=== PATIENT | female | born 1995 | race African-American/Black ===

== ENCOUNTER 2017-01-20 18:34 | Emergency (ER) | payer OTHER ==
[~2017-01-20] VITALS: Ht 165.1 cm; Wt 145.2 kg
[~2017-01-20 18:34] MED LIST: IBUPROFEN600 M1 PO
--- NOTE | 2017-01-20 19:18 | ED GI/GU/ABDOMINAL COMPLAINT ---
History of Present Illness General Chief Complaint: General Adult Stated Complaint: URIARTE, ABD PAIN, X 2 DAYS Source: patient, family Exam Limitations: no limitations Vital Signs & Intake/Output Vital Signs & Intake/Output Vital Signs Date Time Temp Pulse Resp B/P B/P Pulse O2 O2 Flow FiO2 Mean Ox Delivery Rate 01/21 2040 97.2 78 18 144/90 98 Room Air 01/20 1836 97.2 94 15 167/90 96 Room Air Room Air Allergies Coded Allergies: No Known Allergies (01/20/17) Reconcile Medications Acetaminophen (Tylenol Extra Strength) 500 MG TABLET 1 TAB PO TID pain Omeprazole 20 MG CAPSULE. 1 CAP PO DAILY abdominal pain Triage Note: PT TO ED FOR ABD PAIN THAT STARTED SATURDAY AFTER "HAVING A COUPLE OF DRINKS." PT REPORTS +N, NO VOMITING. DENIES URINARY ISSUES. LAST BM THIS MORNING WITHOUT BLOOD IN STOOL. Triage Nurses Notes Reviewed? yes LMP (ages 10-50): date (2 weeks) ? n Is pt currently ? No Onset: Abrupt Duration: day(s): (2) Timing: single episode today Quality/Severity: cramping, dullness Severity Numbers: 4 Location: epigastric, left upper quadrant, suprapubic Radiation: no radiation Activities at Onset: drinking ETOH Prior Abdominal Problems: none Past Sexual History: Unobtainable at this time Sexually Active: Yes Last Time You Were Sexual: less than 2 months ago Sexual Orientation: Other No Modifying Factors: none Modifying Factors: Worsens With: lying down. Associated Symptoms: abdominal pain HPI: 21-year-old female with no past medical history presents complaining of headache and abdominal pain for the past 2 days. Patient reports abdominal pain started Saturday after she had been drinking heavily. Pain is located in the epigastric and left upper quadrant areas and does not radiate. Patient reports pain is worse with laying down and she rates it currently as a 4 out of 10. She has not taken any medication for the pain. Patient reports that abdominal pain is also associated with headache and mild nausea but no vomiting. Headache is described as pressure located on both sides of the head and does not radiate. Patient denies any urinary symptoms vaginal discharge or diarrhea fever shortness of breath or chest pain. (JOS LEE PA-C) Past History Travel History Traveled to [place] past 21 day No Medical History Any Pertinent Medical History? 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 No (ROSA BEJARANO-Asuncion,JOS) Review of Systems Review of Systems Constitutional: Reports: no symptoms. EENTM: Reports: no symptoms. Respiratory: Reports: no symptoms. Cardiovascular: Reports: no symptoms. GI: Reports: abdominal pain. Genitourinary: Reports: no symptoms. Musculoskeletal: Reports: no symptoms. Skin: Reports: no symptoms. Neurological/Psychological: Reports: headache. Hematologic/Endocrine: Reports: no symptoms. Immunologic/Allergic: Reports: no symptoms. All Other Systems: Reviewed and Negative (ROSA DELACRUZ,JOS) Physical Exam Physical Exam General Appearance: well developed/nourished, no apparent distress, alert, awake Head: atraumatic, normal appearance Eyes: Bilateral: normal appearance, PERRL, EOMI, normal inspection. Ears, Nose, Throat, Mouth: hearing grossly normal, moist mucous membrane, Tympanic normal Neck: normal inspection, supple, full range of motion, normal alignment Respiratory: normal breath sounds, chest non-tender, no respiratory distress, lungs clear Cardiovascular: regular rate/rhythm Peripheral Pulses: 2+ radial (R), 2+ radial (L) Gastrointestinal: normal bowel sounds, soft, tenderness (epigastric, LUQ, suprapubic) Rectal: deferred Back: normal inspection, normal range of motion, no vertebral tenderness Extremities: normal range of motion Neurologic/Psych: no motor/sensory deficits, awake, alert, oriented x 3, normal gait, normal mood/affect Skin: intact, normal color, warm/dry Comments: Epigastric, suprapubic and left upper quadrant areas are mildly tender to palpation. There is no guarding no rebound tenderness. Abdomen is soft and nondistended. Patient appears well on exam Core Measures ACS in differential dx? No Severe Sepsis Present: No Septic Shock Present: No (ROSA DELACRUZ,JOS) Progress Differential Diagnosis: appendicitis, biliary colic, cholecystitis, diverticulitis, gastritis, hepatitis, inflamm bowel dis, peptic ulcer, PUD/GERD, SBO, UTI/pyelo Plan of Care: Orders Procedure Date/time Status Add-on Test (ER Only) 01/21 2004 Active LIPASE 01/20 1931 Complete C-REACTIVE PROTEIN 01/20 1931 Complete COMPREHENSIVE METABOLIC PANEL 01/20 1931 Complete CBC WITHOUT DIFFERENTIAL 01/20 1931 Complete AMYLASE 01/20 1931 Complete CULTURE,URINE 01/21 1908 Active URINE 01/20 1838 Complete URINALYSIS 01/20 1838 Complete Laboratory Tests 01/20/171939: Anion Gap 9, Estimated GFR > 60, BUN/Creatinine Ratio 22.9, Glucose 83, Calcium 9.1, Total Bilirubin 0.4, AST 17, ALT 26, Alkaline Phosphatase 66, C-Reactive Prot, Quant 1.2 H, Total Protein 7.3, Albumin 3.9, Globulin 3.4, Albumin/ Globulin Ratio 1.1, Amylase 57, Lipase 69, CBC w Diff NO MAN DIFF REQ, RBC 4.85, MCV 87.3, MCH 28.4, RDW 12.9, MPV 8.3, Gran % 64.7, Lymphocytes % 26.7, Monocytes % 6.6, Eosinophils % 1.6, Basophils % 0.4, Absolute Granulocytes 6.5, Absolute Lymphocytes 2.7, Absolute Monocytes 0.7 H, Absolute Eosinophils 0.2, Absolute Basophils 0, PUBS MCHC 32.5 L 01/20/171907: Urinalysis LIGHT H, Urine Color YEL, Urine Clarity HAZY H, Urine pH 7.0, Ur Specific [place] 1.020, Urine Protein NEG, Urine Ketones NEG, Urine Nitrite NEG, Urine Bilirubin NEG, Urine Urobilinogen 0.2, Ur Leukocyte Esterase MOD H, Ur Microscopic SEDIMENT EXAMINED, Urine RBC RARE, Urine WBC 3-5 H, Ur Epithelial Cells FEW, Urine Bacteria RARE H, Urine Hemoglobin NEG, Urine Glucose NEG, Urine Test NEGATIVE Microbiology 01/21 2004 URINE ROUT: Urine Culture - CAN Cancelled: DUPLICATE - UC ADDED AT 2017 TO URINE REC'D AT 190 - SEE 01/21 1908 URINE ROUT: Urine Culture - RECD 01/20/2017 8:29 PM .patient reevaluated after 1 L normal saline and Protonix and IV Tylenol given. Patient reports improvement of abdominal pain and is currently pain-free in her abdomen. History of physical or compatible with alcoholic gastritis. Imaging is not warranted at this time as the abdomen is currently nontender and nondistended. She still reports a mild headache 4 out of 10. Overall she feels better. Blood work is within normal limits. Urinalysis shows some signs of infection with white blood cells and leukocyte esterase. We will send off a culture to ensure that there is no signs of urinary tract infection. No antibiotics for now as patient is not having any urinary symptoms. Blood pressure is mildly elevated to the 160s over 90s. Repeat blood pressure is improved after rest at 140/90. Patient reports previous history of this but is not currently being treated for hypertension. She will be discharged home on by mouth omeprazole and Tylenol as needed and she'll follow- up with her primary care doctor this week. Case was discussed with Dr. Chawla who is in agreement with the plan. (ROSA DELACRUZ,JOS) Initial ED EKG: none (ROSA DELACRUZ,JOS) Departure Departure Disposition: HOME OR SELF CARE Condition: Stable Clinical Impression Primary Impression: Epigastric abdominal pain Secondary Impressions: Headache Referrals: PATIENT HAS NO PRIMARY CARE DR (PCP/Family) Additional Instructions: Rest, drink plently of fluids do not drink any alcohol. Mcpherson foods like bananas or applesauce and toast. Take omeprazole and Tylenol as directed. They can follow-up on it with her primary care doctor to reassess her blood pressure. Return to the emergency department with any concerns. Please go over all results of today's visit with your primary care doctor. Contact your primary care doctor to let them know you were here in the emergency room. There may be nonspecific findings which may not be related to your visit today here in the emergency room but may require further evaluation and chronic monitoring by your primary care doctor. If you had a laceration today the chance of foreign body always remains. You should follow-up with your primary care doctor for recheck in 3-5 days for a wound check. If you had an x-ray done there is a chance that a fracture could have been missed on initial read and you should follow-up with your primary care doctor for repeat x-rays if symptoms persist. If your blood pressure was elevated here in the emergency room please have rechecked by her primary care doctor within the next 48 hours by your primary care doctor. If you were prescribed a narcotic here in the emergency room or any type of controlled substances you're not allowed to drive while taking this medication or operate any type of heavy machinery. Narcotics can make you feel lightheaded dizziness nausea and can cause constipation. You may need to cotton picker operator a stool softener. Thank you for choosing [facility] emergency room. Please return to the emergency room immediately if you have any other concerns worsening of symptoms. Departure Forms: Customer Survey General Discharge Information Prescriptions: Current Visit Scripts Omeprazole 1 CAP PO DAILY #30 CAP Acetaminophen (Tylenol Extra Strength) 1 TAB PO TID #10 TAB (JOS LEE PA-C) PA/BILLBOARD INSTALLER Co-Sign Statement Statement: ED Attending supervision documentation- [] I saw and evaluated the patient. I have also reviewed all the pertinent lab results and diagnostic results. I agree with the findings and the plan of care as documented in the PA's/BILLBOARD INSTALLER's documentation. [x] I have reviewed the ED Record and agree with the PA's/BILLBOARD INSTALLER's documentation. [] Additions or exceptions (if any) to the PAs/BILLBOARD INSTALLER's note and plan are summarized below: [] (KRISHNA AYALA,RISSA Juan)
[2017-01-20 20:11] LABS: ABSOLUTE BASOPHIL COUNT 0 /CUMM (0.0-0.2); ABSOLUTE EOSINOPHIL COUNT 0.2 /CUMM (0.0-0.7); ABSOLUTE GRANULOCYTE CT 6.5 /CUMM (1.4-6.5); ABSOLUTE LYMPH COUNT 2.7 /CUMM (1.2-3.4); ABSOLUTE MONOCYTE COUNT 0.7 /CUMM (0.10-0.60); BASOPHIL % 0.4 % (0.0-2.0); EOSINOPHIL % 1.6 % (0-5); GRANULOCYTE % 64.7 % (42.2-75.2); HEMATOCRIT 42.3 % (37-47); MEAN CORPUSCULAR HGB 28.4 PG (27.0-31.0); MEAN CORPUSCULAR HGB CONC 32.5 G/DL (33.0-37.0); MEAN CORPUSCULAR VOLUME 87.3 FL (81.0-99.0); MEAN PLATELET VOLUME 8.3 FL (7.4-10.4); PLATELET COUNT 291 /CUMM (130-400); RBC DISTRIBUTION WIDTH 12.9 % (11.5-14.5); RED BLOOD CELL CT 4.85 /CUMM (4.20-5.40); WHITE BLOOD CELL COUNT 10.1 /CUMM (4.8-10.8)
[2017-01-20 20:40] VITALS: BP 144/90
[2017-01-20] MEDS ORDERED: TYLENOL EXTRA500 M2 PO (20:58)
[2017-01-20] MEDS ORDERED: OMEPRAZOLE20 M2 PO (20:58)
== END 2017-01-20 21:02 ==
LOC: ERH 18:34
PROVIDERS: Physician Assistant Medical
DX: R10.13 Epigastric pain (principal); R51 Headache
CPT/HCPCS: 81001; 81025; 87086; 96374; 96375; J0131

== ENCOUNTER 2017-11-20 19:00 | Emergency (ER) | payer OTHER ==
[~2017-11-20] VITALS: Ht 162.6 cm; Wt 145.2 kg
[~2017-11-20 19:00] MED LIST changes: +OMEPRAZOLE20 M2 PO; +TYLENOL EXTRA500 M2 PO
[2017-11-20 19:23] VITALS: BP 125/89
--- NOTE | 2017-11-20 19:23 | ED GENERAL ADULT ---
History of Present Illness General Chief Complaint: General Adult Stated Complaint: PREG TEST Source: patient Exam Limitations: no limitations Vital Signs & Intake/Output Vital Signs & Intake/Output Vital Signs Date Time Temp Pulse Resp B/P B/P Pulse O2 O2 Flow FiO2 Mean Ox Delivery Rate 11/20 1922 98.9 87 18 125/89 98 Room Air Allergies Coded Allergies: No Known Allergies (01/20/17) Reconcile Medications Ibuprofen 600 MG TABLET 1 TAB PO BID PRN PAIN with food Triage Nurses Notes Reviewed? yes Onset: Gradual Duration: week(s): (2) Timing: no prior history Injury Environment: home Severity: mild Severity Numbers: 1 No Modifying Factors: none HPI: Patient is a 22-year-old female presenting to the emergency department with chief complaint of intermittent nausea that she experienced 2 weeks ago. Currently not nauseous. No abdominal pain. She thinks she may be as she has had unprotected sex. Denies any vaginal bleeding or discharge. No urinary frequency urgency or dysuria. Here for a test. Has not gone to see her CASH CLERK. (Marisol Oglesby) Past History Travel History Traveled to [place] past 21 day No Medical History Any Pertinent Medical History? 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 No (Marisol Oglesby) Review of Systems Review of Systems Constitutional: Reports: no symptoms. Comments Review of systems: See HPI, All other systems negative. Constitutional, no chills fever or weight loss HEENT: No visual changes no sore throat no congestion Cardiovascular: No chest pain ,palpitation , orthopnea or ankle swelling Skin, no jaundice no rashes Respiratory: No dyspnea cough sputum or hemoptysis GI: no vomiting : No dysuria No hematuria Muscle skeletal: no back pain, no neck pain, Neurologic: No numbness no confusion Psych: No stress anxiety or depression,. Heme/endocrine: No bruising no bleeding no polyuria or polydipsia Immunology: No splenectomy or history of AIDS (Marisol Oglesby) Physical Exam Physical Exam General Appearance: well developed/nourished, no apparent distress, alert, awake , comfortable Comments: Well-developed well-nourished person in no acute distress HEENT: atraumatic, normocephalic Neck: NORMAL INSPECTION Back: Nontender, no CVA tenderness. Cardiovascular: Regular rate and rhythms no murmurs rubs or gallops, normal JVP Respiratory: No respiratory distress.breath sounds clear to auscultation bilaterally Abdomen: Soft, nontender nondistended Extremity: No edema Neuro: Alert oriented x3 Skin: No appreciable rash on exposed skin, skin is warm and dry. Psych: Mood and affect is normal, memory and judgment is normal. Core Measures ACS in differential dx? No CVA/TIA Diagnosis: No Sepsis Present: No Sepsis Focused Exam Completed? No (Marisol Oglesby) Progress Differential Diagnoses I considered the following diagnoses in my evaluation of the patient: , dysmenorrhea, amenorrhea Plan of Care: Orders Procedure Date/time Status URINE 11/20 1902 Complete Laboratory Tests 11/20/171958: Urine Test NEGATIVE Initial ED EKG: none (Marisol Oglesby) Departure Departure Time of Disposition: 2026 Disposition: HOME OR SELF CARE Condition: Stable Clinical Impression Primary Impression: Nausea Secondary Impressions: Amenorrhea Referrals: Herber AYALA,Herber (PCP/Family) Fernanda Arellano MD Additional Instructions: Follow-up with your CASH CLERK in the next 5-7 days. Call to make an appointment. It may be too early to detect with urinalysis. Try testing again in the next 1-2 weeks just after missing a period. Increase fluids. Return for worsening symptoms or concerns. Departure Forms: Customer Survey General Discharge Information (Marisol Oglesby) PA/ELECTRONICS DEPARTMENT MANAGER Co-Sign Statement Statement: ED Attending supervision documentation- I saw and evaluated the patient. I have also reviewed all the pertinent lab results and diagnostic results. I agree with the findings and the plan of care as documented in the PA's/ELECTRONICS DEPARTMENT MANAGER's documentation. x I have reviewed the ED Record and agree with the PA's/ELECTRONICS DEPARTMENT MANAGER's documentation. [] Additions or exceptions (if any) to the PAs/ELECTRONICS DEPARTMENT MANAGER's note and plan are summarized below: [] (Jd AYALA,Leroy) Critical Care Note Critical Care Note Critical Care Time: non-applicable (Michelle BEJARANO,Marisol)
== END 2017-11-20 20:37 ==
LOC: ERH 19:00
DX: R11.0 Nausea (principal); N91.2 Amenorrhea, unspecified
CPT/HCPCS: 81025

== ENCOUNTER 2017-12-25 02:25 | Emergency (ER) | payer OTHER ==
[~2017-12-25] VITALS: Ht 162.6 cm; Wt 156.9 kg
--- NOTE | 2017-12-25 03:22 | ED GI/GU/ABDOMINAL COMPLAINT ---
History of Present Illness General Chief Complaint: General Adult Stated Complaint: "ABD PAIN RADIATES TO LOWER BACK,+N+V+D" Source: patient Exam Limitations: no limitations Vital Signs & Intake/Output Vital Signs & Intake/Output Vital Signs Date Time Temp Pulse Resp B/P B/P Pulse O2 O2 Flow FiO2 Mean Ox Delivery Rate 12/257 100 Room Air 12/25 246 98.1 88 16 143/83 100 Room Air Allergies Coded Allergies: No Known Allergies (01/20/17) Reconcile Medications Metronidazole 0.75 % GEL.W.APPL 1 A VG QPM VAGINAL CREAM (Reported) Triage Note: ARRIVES TO ER WITH C/O LOWER ABDOMINAL PAIN, +N/V, LAST BM TODAY (NORMAL), PAIN X 1 WEEK. Triage Nurses Notes Reviewed? yes ? n Is pt currently ? No Onset: Gradual Duration: week(s): (2), constant, changing over time, continues in ED, getting worse Quality/Severity: sharpness (while breathing deeply), severe (while breathing deeply) Location: left upper quadrant, right upper quadrant Radiation: back HPI: Patient presents for evaluation of the bilateral upper quadrant abdominal pain with radiation to the back that began about 2 weeks ago. Patient has had nausea vomiting and intermittent diarrhea as well. She also has been experiencing a bad taste in the mouth and has been unable to sleep. Patient states she feels better with eating. She denies any associated fever old symptoms or dysuria but states she has had to urinate frequently recently. She is also describing a mild vaginal discharge that was already been evaluated by her doctor. Past History Travel History Traveled to [place] past 21 day No Medical History Any Pertinent Medical History? 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 No Review of Systems Review of Systems Constitutional: Reports: no symptoms. EENTM: Reports: no symptoms. Respiratory: Reports: no symptoms. Cardiovascular: Reports: no symptoms. GI: Reports: see HPI. Genitourinary: Reports: no symptoms. Musculoskeletal: Reports: no symptoms. Skin: Reports: no symptoms. Neurological/Psychological: Reports: no symptoms. Hematologic/Endocrine: Reports: no symptoms. Immunologic/Allergic: Reports: no symptoms. All Other Systems: Reviewed and Negative Physical Exam Physical Exam Gastrointestinal: see below Comments: Gen.: Well-nourished, well-developed, no acute respiratory distress. Head: Normocephalic, atraumatic. Eyes: Normal inspection bilaterally Ears: Normal inspection bilaterally Nose: Normal inspection Throat/mouth : Moist mucosa Neck: Supple, full range of motion, no goiter Heart: Regular rate and rhythm, no murmurs rubs or gallops Lungs: Clear to auscultation bilaterally with normal air entry Chest: Nontender Back: Normal range of motion Abdomen: Soft, diffuse tenderness without rebound or guarding, nondistended, normal bowel sounds Extremities: Normal range of motion grossly, equal radial pulses, no cyanosis clubbing or edema Neurologic: Cranial nerves grossly intact, speech is clear Skin: warm and dry Psychiatric: Calm, cooperative, no apparent delusions or hallucinations Core Measures ACS in differential dx? No Sepsis Present: No Sepsis Focused Exam Completed? No Progress Differential Diagnosis: appendicitis, biliary colic, cholecystitis, diverticulitis, gastritis, inflamm bowel dis, intrauterine , kidney stone, PUD/GERD, UTI/pyelo Plan of Care: Orders Procedure Date/time Status HUMAN BETA HCG SCREEN 12/25 344 Complete URINALYSIS 12/25 329 Complete LIPASE 12/25 329 Complete COMPREHENSIVE METABOLIC PANEL 12/25 329 Complete CBC WITHOUT DIFFERENTIAL 12/25 329 Complete Laboratory Tests 12/25/17 0350: Urinalysis MANY H, Urine Color YEL, Urine Clarity CLEAR, Urine pH 5.5, Ur Specific [place] >= 1.030, Urine Protein NEG, Urine Ketones NEG, Urine Nitrite NEG, Urine Bilirubin NEG, Urine Urobilinogen 0.2, Ur Leukocyte Esterase SMALL H , Ur Microscopic SEDIMENT EXAMINED, Urine RBC 1-3, Urine WBC 3-5 H, Ur Epithelial Cells MANY H, Urine Bacteria RARE H, Urine Hemoglobin TRACE-INTACT, Urine Glucose NEG 12/25/17 0345: Anion Gap 11, Estimated GFR > 60, BUN/Creatinine Ratio 17.1, Glucose 99, Calcium 9.1, Total Bilirubin 0.4, AST 15, ALT 17, Alkaline Phosphatase 81, Total Protein 7.6, Albumin 4.1, Globulin 3.5, Albumin/Globulin Ratio 1.2, Lipase 72, Total Beta HCG NEGATIVE, CBC w Diff NO MAN DIFF REQ, RBC 5.01, MCV 86.7, MCH 28.1, MCHC 32.4 L, RDW 13.6, MPV 8.0, Gran % 61.8, Lymphocytes % 30.4, Monocytes % 5.8, Eosinophils % 1.3, Basophils % 0.7, Absolute Granulocytes 6.0, Absolute Lymphocytes 2.9, Absolute Monocytes 0.6, Absolute Eosinophils 0.1, Absolute Basophils 0.1 12/25/17 0344: Total Beta HCG Cancelled Diagnostic Imaging: Discussed w/RAD: CT Scan. Radiology Impression: PATIENT: STELLA MACIAS PRESENT AGE: 22 PATIENT ACCOUNT NO: [id number] : 93 LOCATION: [facility] ORDERING PHYSICIAN: Norberto Soliz MD SERVICE DATE: 12/25/17 EXAM TYPE: CAT - CT ABD & PELVIS W/O IV CONTRAS EXAMINATION: CT ABDOMEN AND PELVIS WITHOUT CONTRAST CLINICAL INFORMATION: Upper abdominal pain and tenderness COMPARISON: None TECHNIQUE: Multidetector volumetric imaging was performed from the superior aspect of the liver through the pubic symphysis. Sagittal and coronal reformatted images were obtained on the technologist's workstation. DLP: 1602 mGy-cm FINDINGS: LUNG BASES: The visualized lung bases are unremarkable. LIVER, GALLBLADDER, AND BILIARY TREE: The liver is normal in size, shape, and attenuation. No focal hepatic lesion or biliary ductal dilatation is present. The gallbladder is unremarkable with no evidence of radiopaque gallstones, gallbladder wall thickening, or obvious pericholecystic inflammatory changes. PANCREAS: Unremarkable. SPLEEN: Unremarkable. ADRENAL GLANDS: Unremarkable. KIDNEYS AND URETERS: The kidneys are normal in size, shape, and attenuation. No hydronephrosis, hydroureter, or calculi seen. No perinephric stranding. BLADDER: Unremarkable. GASTROINTESTINAL TRACT: The stomach is unremarkable. The small bowel is normal in caliber. There is no obstruction. No colonic wall thickening or inflammatory change. Normal appendix. No free air or free fluid. ABDOMINAL WALL: No significant hernia is appreciated. LYMPH NODES: Normal. VASCULAR: Unremarkable. PELVIC VISCERA: The uterus and adnexa are unremarkable. OSSEOUS STRUCTURES: No acute or suspicious osseous abnormality. Transitional anatomy at the lumbosacral junction. IMPRESSION: No acute findings of the abdomen or pelvis. No inflammatory changes. DICTATED BY: Og Smith MD DATE/TIME DICTATED:12/25/17449 [employer] OTHER RANKS:IVETTE DATE/TIME TRANSCRIBED:449 CONFIDENTIAL, DO NOT COPY WITHOUT APPROPRIATE AUTHORIZATION. < Electronically signed in Other Vendor System> SIGNED BY: Og Smith MD 12/25/17 0457 Initial ED EKG: none Comments: 12/25/2017 5:18:27 AM I have updated Stella on her test results. She has declined a prescription for an antacid preferring to modify her diet and perhaps take an [id number] antacid instead. I have urged that she follow up with her primary care physician for possible referral to a gastrointestinal specialist to pursue the possibility of peptic ulcer disease. Departure Departure Disposition: HOME OR SELF CARE Condition: Stable Clinical Impression Primary Impression: Nonspecific abdominal pain Referrals: Herber Craven MD (PCP/Family) Additional Instructions: [place] diet. Levsin as needed for pain. Zantac as prescribed to control stomach acid. Follow-up with your primary care physician for reevaluation this week. Return if any concerns or sudden worsening. Please note that there might be incidental findings in your evaluation that are unrelated to the current emergency department visit. Please notify your primary care doctor about this emergency department visit in order to obtain and review all of the testing performed so that these incidental findings can be monitored as needed. If you had an x-ray performed, please understand that some fractures may not be seen on the initial set of x-rays. If your symptoms persist you might need a repeat set of x-rays to check for such a fracture. If you had a laceration evaluated, please understand that foreign bodies such as glass or wood may not be visible to the naked eye or on plain x-rays. If the wound becomes red, swollen, increasingly more painful or if there is any drainage from the wound, please have it reevaluated by a physician for the possibility of a retained foreign body. If you're unable to follow up as outlined in the discharge instructions please return to the emergency department. Thank you for choosing the [facility] Emergency Department for your care. It was a pleasure to serve you today. Norberto Soliz M.D. [facility] Departure Forms: Customer Survey General Discharge Information
[2017-12-25 03:56] LABS: ABSOLUTE BASOPHIL COUNT 0.1 /CUMM (0.0-0.2); ABSOLUTE EOSINOPHIL COUNT 0.1 /CUMM (0.0-0.7); ABSOLUTE LYMPH COUNT 2.9 /CUMM (1.2-3.4); ABSOLUTE MONOCYTE COUNT 0.6 /CUMM (0.10-0.60); BASOPHIL % 0.7 % (0.0-2.0); EOSINOPHIL % 1.3 % (0-5); GRANULOCYTE % 61.8 % (42.2-75.2); HEMATOCRIT 43.4 % (37-47); MEAN CORPUSCULAR HGB 28.1 PG (27.0-31.0); MEAN CORPUSCULAR HGB CONC 32.4 G/DL (33.0-37.0); MEAN CORPUSCULAR VOLUME 86.7 FL (81.0-99.0); PLATELET COUNT 331 /CUMM (130-400); RBC DISTRIBUTION WIDTH 13.6 % (11.5-14.5); RED BLOOD CELL CT 5.01 /CUMM (4.20-5.40); WHITE BLOOD CELL COUNT 9.6 /CUMM (4.8-10.8)
[2017-12-25] MEDS ORDERED: METRONIDAZOLE70 GM VG (04:03)
--- NOTE | 2017-12-25 04:55 | CT SCAN REPORT ---
EXAMINATION: CT ABDOMEN AND PELVIS WITHOUT CONTRAST CLINICAL INFORMATION: Upper abdominal pain and tenderness COMPARISON: None TECHNIQUE: Multidetector volumetric imaging was performed from the superior aspect of the liver through the pubic symphysis. Sagittal and coronal reformatted images were obtained on the technologist's workstation. DLP: 1602 mGy-cm FINDINGS: LUNG BASES: The visualized lung bases are unremarkable. LIVER, GALLBLADDER, AND BILIARY TREE: The liver is normal in size, shape, and attenuation. No focal hepatic lesion or biliary ductal dilatation is present. The gallbladder is unremarkable with no evidence of radiopaque gallstones, gallbladder wall thickening, or obvious pericholecystic inflammatory changes. PANCREAS: Unremarkable. SPLEEN: Unremarkable. ADRENAL GLANDS: Unremarkable. KIDNEYS AND URETERS: The kidneys are normal in size, shape, and attenuation. No hydronephrosis, hydroureter, or calculi seen. No perinephric stranding. BLADDER: Unremarkable. GASTROINTESTINAL TRACT: The stomach is unremarkable. The small bowel is normal in caliber. There is no obstruction. No colonic wall thickening or inflammatory change. Normal appendix. No free air or free fluid. ABDOMINAL WALL: No significant hernia is appreciated. LYMPH NODES: Normal. VASCULAR: Unremarkable. PELVIC VISCERA: The uterus and adnexa are unremarkable. OSSEOUS STRUCTURES: No acute or suspicious osseous abnormality. Transitional anatomy at the lumbosacral junction. IMPRESSION: No acute findings of the abdomen or pelvis. No inflammatory changes.
[2017-12-25 05:33] VITALS: BP 127/88
== END 2017-12-25 05:33 ==
LOC: ERH 02:25
PROVIDERS: Emergency Medicine
DX: R10.12 Left upper quadrant pain (principal); R10.11 Right upper quadrant pain
CPT/HCPCS: 74176; 81001